=== PATIENT | male | born 1970 | race Caucasian/White ===

== ENCOUNTER 2022-11-01 18:23 | Emergency (ER) | payer MEDICAID ==
[~2022-11-01] VITALS: Ht 177 cm; Wt 109.0 kg
[2022-11-01] MEDS ORDERED: CLINDAMYCIN 600 MG/50 ML IVPB 50 ML IV ONE (18:45)
[2022-11-01 18:59] LABS: BASOPHILS % (AUTO) 1 % (0-10); EOSINOPHILS # (AUTO) 0.2 10^3/uL (0.0-0.3); EOSINOPHILS % (AUTO) 4 % (0-10); HEMATOCRIT 43 % (40-54); LYMPHOCYTES # (AUTO) 1.8 10^3/uL (1.0-4.0); LYMPHOCYTES % (AUTO) 33 % (12-44); MEAN CORPUSCULAR HEMOGLOBIN 32 pg (25-34); MEAN CORPUSCULAR HGB CONC 35 g/dL (32-36); MEAN CORPUSCULAR VOLUME 91 fL (80-99); MEAN PLATELET VOLUME 9.1 fL (9.0-12.2); MONOCYTES # (AUTO) 0.7 10^3/uL (0.0-1.0); MONOCYTES % (AUTO) 14 % (0-12); NEUTROPHILS # (AUTO) 2.6 10^3/uL (1.8-7.8); NEUTROPHILS % (AUTO) 48 % (42-75); PLATELET COUNT 225 10^3/uL (130-400); WHITE BLOOD COUNT 5.4 10^3/uL (4.3-11.0)
[2022-11-01 19:24] LABS: ALBUMIN 4.1 GM/DL (3.2-4.5); BILIRUBIN,TOTAL 0.4 MG/DL (0.1-1.0); CALCIUM 9.1 MG/DL (8.5-10.1); CREATININE SERUM 0.89 MG/DL (0.60-1.30); POTASSIUM 3.9 MMOL/L (3.6-5.0); TOTAL PROTEIN 6.7 GM/DL (6.4-8.2)
[2022-11-01] MEDS ORDERED: CLIN150C20 PO (20:13)
--- NOTE | 2022-11-01 20:14 | ED Lower Extremity ---
General Chief Complaint: Lower Extremity Stated Complaint: SENT BY PCP FOOT PAIN Nursing Triage Note: PT PRESENTS TO ED WITH COMPLAINTS OF L FOOT PAIN/SWELLING THAT HAS BEEN PROGRESSIVELY WORSE OVER THE PAST WEEK. PT BEEN SEEN BY [facility] IN [place] 4 DAYS AGO AND PRESCRIBED DOXYCYCLINE AND GIVEN A ROCEPHINE SHOT YESTERDAY. PT REPORTS INCREASED SWELLING DESPITE ANTIBIOTICS. Source: patient Exam Limitations: no limitations History of Present Illness Date Seen by Provider: Nov 01, 2022 Time Seen by Provider: 19:00 Initial Comments 52-year-old male presents for left foot pain. He was seen in primary care clinic initially and started on doxycycline. He states symptoms continue to worsen and yesterday he was given a shot of Rocephin. He was seen again today for recheck and advised to come to the emergency department. He denies any fevers or chills. He does have significant swelling to about the mid robles. All other systems reviewed and negative except documented per HPI. Voice recognition software was used to help create this chart Allergies and Home Medications Allergies Coded Allergies: No Known Drug Allergies (Unverified , 11/01/22) Patient Home Medication List Home Medication List Reviewed: Yes Clindamycin HCl (Clindamycin HCl) 150 Mg Capsule, 300 MG PO TID Prescribed by: SHAUN SAMUELS MD on 11/01/22 2013 Review of Systems Constitutional: see HPI Past Pqccnng-Ousuof-Oualyi Hx Patient Social History Tobacco Use?: Yes Tobacco type used: Cigarettes Smoking Status: Current Everyday Smoker Substance use?: Yes Substance type: Marijuana Alcohol Use?: Yes Alcohol Frequency: Once in a while Pt feels they are or have been: No Physical Exam Vital Signs Vital Signs - First Documented 11/01/22 18:37 Temp 36.6 Pulse 77 Resp 16 B/P (MAP) 153/98 (116) Pulse Ox 96 Capillary Refill : Less Than 3 Seconds Height, Weight, BMI Height: '" Weight: lbs. oz. kg; 34.00 BMI Method: General Appearance: WD/WN, no apparent distress Cardiovascular: regular rate, rhythm, no murmur Respiratory: chest non-tender, lungs clear, normal breath sounds Hips: bilateral hip non-tender, bilateral hip normal inspection, bilateral hip normal range of motion Legs: left leg swelling (Swelling, erythema the left foot and the ankle area. There is no fluctuance or induration.); bilateral leg other (Hyperemia with slight scaling/blistering to the dorsum of bilateral feet.) Feet: bilateral foot other (As described above) Neurologic/Tendon: normal sensation, normal motor functions, normal tendon functions Neurologic/Psychiatric: alert, oriented x 3 Skin: other (As described elsewhere) Progress/Results/Core Measures Results/Orders Lab Results Laboratory Tests Test 11/01/22 18:52 Range/Units White Blood Count 5.4 4.3-11.0 10^3/uL Red Blood Count 4.73 4.30-5.52 10^6/uL Hemoglobin 15.0 13.3-17.7 g/dL Hematocrit 43 40-54 % Mean Corpuscular Volume 91 80-99 fL Mean Corpuscular Hemoglobin 32 25-34 pg Mean Corpuscular Hemoglobin Concent 35 32-36 g/dL Red Cell Distribution Width 12.4 10.0-14.5 % Platelet Count 225 130-400 10^3/uL Mean Platelet Volume 9.1 9.0-12.2 fL Immature Granulocyte % (Auto) 0 % Neutrophils (%) (Auto) 48 42-75 % Lymphocytes (%) (Auto) 33 12-44 % Monocytes (%) (Auto) 14 H 0-12 % Eosinophils (%) (Auto) 4 0-10 % Basophils (%) (Auto) 1 0-10 % Neutrophils # (Auto) 2.6 1.8-7.8 10^3/uL Lymphocytes # (Auto) 1.8 1.0-4.0 10^3/uL Monocytes # (Auto) 0.7 0.0-1.0 10^3/uL Eosinophils # (Auto) 0.2 0.0-0.3 10^3/uL Basophils # (Auto) 0.0 0.0-0.1 10^3/uL Immature Granulocyte # (Auto) 0.0 0.0-0.1 10^3/uL D-Dimer 0.39 0.00-0.49 UG/ML Sodium Level 140 135-145 MMOL/L Potassium Level 3.9 3.6-5.0 MMOL/L Chloride Level 108 H 98-107 MMOL/L Carbon Dioxide Level 22 21-32 MMOL/L Anion Gap 10 5-14 MMOL/L Blood Urea Nitrogen 23 H 7-18 MG/DL Creatinine 0.89 0.60-1.30 MG/DL Estimat Glomerular Filtration Rate 104 BUN/Creatinine Ratio 26 Glucose Level 139 H 70-105 MG/DL Calcium Level 9.1 8.5-10.1 MG/DL Corrected Calcium 9.0 8.5-10.1 MG/DL Total Bilirubin 0.4 0.1-1.0 MG/DL Aspartate Amino Transf (AST/SGOT) 17 5-34 U/L Alanine Aminotransferase (ALT/SGPT) 24 0-55 U/L Alkaline Phosphatase 51 40-136 U/L Total Protein 6.7 6.4-8.2 GM/DL Albumin 4.1 3.2-4.5 GM/DL My Orders Orders - SHAUN SAMUELS DO Comprehensive Metabolic Panel (11/01/22 18:38) Ed Iv/Invasive Line Start (11/01/22 18:38) Cbc With Automated Diff (11/01/22 18:38) Clindamycin 600 Mg/50 Ml Ivpb (Clindamyc (11/01/22 18:45) Fibrin Degradation Products (11/01/22 18:47) Medications Given in ED Current Medications Medications Dose Ordered Sig/Laine Route Start Time Stop Time Status Last Admin Dose Admin Clindamycin Phosphate/Dextrose 50 ml @ 100 mls/hr ONCE ONCE IV 11/01/22 18:45 11/01/22 19:14 DC 11/01/22 19:00 100 MLS/HR Vital Signs/I&O 11/01/22 11/01/22 18:37 20:27 Temp 36.6 Pulse 77 77 Resp 16 16 B/P (MAP) 153/98 (116) 130/86 Pulse Ox 96 96 Blood Pressure Mean: 116 Departure Communication (Admissions) Patient is hemodynamically stable. He has clear cellulitis no evidence of abscess. D-dimer is negative, likely not DVT. Also counts normal as are his vital signs. We will switch him from doxycycline to clindamycin. He is given his first dose here in an IV. Discharged in stable condition with strict return precautions that if his symptoms are worsening after 24 hours he needs to be admitted for IV antibiotics Impression Primary Impression: Cellulitis Qualified Codes: L03.116 - Cellulitis of left lower limb Disposition: HOME, SELF-CARE Condition: Stable Departure-Patient Inst. Referrals: TRUE NICHOLAS MD (PCP/Family) Primary Care Physician Add. Discharge Instructions: Doxycycline to start taking clindamycin. The redness may get a little worse over the next 24 hours but should not get worse after that. If it still worsening after 24 hours you need to be admitted to the hospital for IV antibiotics return to the emergency department sooner for any severe concerns. Follow-up with your primary doctor in the next 48 hours for recheck of your leg All discharge instructions reviewed with patient and/or family. Voiced understanding. Scripts Clindamycin HCl (Clindamycin HCl) 150 Mg Capsule 300 MG PO TID for 7 Days, #42 CAP Prov: SHAUN SAMUELS DO 11/01/22 SHAUN SAMUELS DO Nov 01, 2022 20:14
[2022-11-01 20:27] VITALS: BP 130/86
== END 2022-11-01 20:27 | disposition home or self-care (01) ==
LOC: EDUNIT# 18:23 → ER 18:29
DX: L03.116 Cellulitis of left lower limb (principal); F17.210 Nicotine dependence, cigarettes, uncomplicated
CPT/HCPCS: 36415; 80053; 85025; 85379

== ENCOUNTER 2022-11-08 11:32 | Emergency (ER) | payer MEDICAID ==
[~2022-11-08] VITALS: Ht 177.8 cm; Wt 108.8 kg
[~2022-11-08 11:32] MED LIST: CLIN150C20 PO
[2022-11-08] MEDS ORDERED: PIPERACILLIN/Tazobactam 4.5 GM in NS (IVPB) 100 ML 100 ML IV ONE (12:15)
[2022-11-08] MEDS ORDERED: VANCOMYCIN INJECTION 1,000 MG in NS (IVPB) 250 ML 250 ML IV ONE (12:15)
[2022-11-08 12:22] LABS: BASOPHILS % (AUTO) 0 % (0-10); EOSINOPHILS # (AUTO) 0.1 10^3/uL (0.0-0.3); EOSINOPHILS % (AUTO) 1 % (0-10); HEMATOCRIT 47 % (40-54); HEMOGLOBIN 16.2 g/dL (13.3-17.7); LYMPHOCYTES # (AUTO) 1.8 10^3/uL (1.0-4.0); LYMPHOCYTES % (AUTO) 15 % (12-44); MEAN CORPUSCULAR HEMOGLOBIN 31 pg (25-34); MEAN CORPUSCULAR HGB CONC 35 g/dL (32-36); MEAN CORPUSCULAR VOLUME 90 fL (80-99); MEAN PLATELET VOLUME 8.8 fL (9.0-12.2); MONOCYTES % (AUTO) 9 % (0-12); NEUTROPHILS # (AUTO) 8.7 10^3/uL (1.8-7.8); NEUTROPHILS % (AUTO) 75 % (42-75); PLATELET COUNT 252 10^3/uL (130-400); WHITE BLOOD COUNT 11.7 10^3/uL (4.3-11.0)
[2022-11-08 12:25] LABS: ALBUMIN 4.4 GM/DL (3.2-4.5); POTASSIUM 4.3 MMOL/L (3.6-5.0)
--- NOTE | 2022-11-08 12:25 | ED General ---
General Chief Complaint: General Problems/Pain Stated Complaint: ABD PAIN | COVID+ 5 DAYS AGO Nursing Triage Note: PT AMB TO RM 5 SENT FROM [facility] WITH CC OF "LUMP IN R GROIN" X 3 DAYS. PT REPORTS PAIN WITH PALPATATION OF AREA OF CONCERN. REDDNESS AND SWELLING NOTED TO AREA. PT REPORTS TESTED POS FOR COVID 5 DAY AGO. PT STATES RECENT MRSA INFECTION ON FOOT TREATED WTIH IV ANTIBIOTICS. Source of Information: Patient Exam Limitations: No Limitations History of Present Illness Date Seen by Provider: Nov 08, 2022 Time Seen by Provider: 12:24 Initial Comments Patient is a 52-year-old male who presents the ED from [facility] for a lump in right groin. Started 3 days ago. Started with a small red bump. This has increased and become more longitudinal. He reports some mild pain and discomfort. Denies of any specific injury. States he is currently on clindamycin and Bactrim. Has not taken antibiotic today. History of MRSA to his left foot. Denies of any current fever, chills body aches. He does report being diagnosed with COVID 5 days ago and currently on Paxlovid. He states he is feeling much better since being diagnosed with COVID. He is concern for potential abscess versus early infection to his right groin. Denies of any pain with urination, frequent urination, headache, dizziness, nausea vomit, diarrhea Allergies and Home Medications Allergies Coded Allergies: No Known Drug Allergies (Unverified , 11/01/22) Patient Home Medication List Home Medication List Reviewed: Yes Clindamycin HCl (Clindamycin HCl) 150 Mg Capsule, 300 MG PO TID Prescribed by: SHAUN SAMUELS MD on 11/01/222012 Review of Systems Review of Systems Constitutional: No chills, No diaphoresis; malaise, weakness EENTM: No blurred vision, No double vision Respiratory: No cough Cardiovascular: No chest pain Gastrointestinal: No abdominal pain, No diarrhea, No nausea, No vomiting Genitourinary: No decreased output Musculoskeletal: No back pain, No gout Skin: change in color All Other Systems Reviewed Negative Unless Noted: Yes Past Zksphnj-Tcqzur-Rkotib Hx Patient Social History Tobacco Use?: Yes Tobacco type used: Cigarettes Smoking Status: Current Everyday Smoker Substance use?: Yes Substance type: Marijuana Substance frequency: Daily Alcohol Use?: Yes Alcohol Frequency: Once in a while Past Medical History Surgery/Hospitalization HX: DENIES Physical Exam Vital Signs Vital Signs - First Documented 11/08/22 11:59 Temp 37.1 Pulse 86 Resp 16 B/P (MAP) 143/100 (114) Pulse Ox 98 O2 Delivery Room Air Capillary Refill : Less Than 3 Seconds Height, Weight, BMI Height: '" Weight: lbs. oz. kg; 34.00 BMI Method: General Appearance: No Apparent Distress, WD/WN Eyes: Bilateral Eye Normal Inspection, Bilateral Eye PERRL, Bilateral Eye EOMI HEENT: PERRL/EOMI, TMs Normal, Normal ENT Inspection, Pharynx Normal Neck: Full Range of Motion, Normal Inspection, Non Tender, Supple Respiratory: Chest Non Tender, Lungs Clear, Normal Breath Sounds, No Accessory Muscle Use, No Respiratory Distress Cardiovascular: Regular Rate, Rhythm, No Edema, No Gallop, No JVD Gastrointestinal: Normal Bowel Sounds, No Organomegaly, No Pulsatile Mass, Non Tender Back: Normal Inspection, No CVA Tenderness, No Vertebral Tenderness Extremity: Other (Induration swelling to right groin. No fluctuant mass. Palpable inguinal lymphadenopathy. Mild tenderness to palpate.) Neurologic/Psychiatric: Alert, Oriented x3, No Motor/Sensory Deficits, Normal Mood/Affect, sql programmer analyst II-XII Norm as Tested Skin: Other (Erythema and swelling to right groin. Induration noted. No fluctuant mass.) Progress/Results/Core Measures Suspected Sepsis SIRS Temperature: Pulse: 86 Respiratory Rate: 16 Laboratory Tests 11/08/22 12:07: White Blood Count 11.7H Blood Pressure 143 /100 Mean: 114 Laboratory Tests 11/08/22 12:07: Creatinine 0.87, Platelet Count 252, Total Bilirubin 0.9 Results/Orders Lab Results Laboratory Tests Test 11/08/22 12:07 Range/Units White Blood Count 11.7 H 4.3-11.0 10^3/uL Red Blood Count 5.16 4.30-5.52 10^6/uL Hemoglobin 16.2 13.3-17.7 g/dL Hematocrit 47 40-54 % Mean Corpuscular Volume 90 80-99 fL Mean Corpuscular Hemoglobin 31 25-34 pg Mean Corpuscular Hemoglobin Concent 35 32-36 g/dL Red Cell Distribution Width 12.4 10.0-14.5 % Platelet Count 252 130-400 10^3/uL Mean Platelet Volume 8.8 L 9.0-12.2 fL Immature Granulocyte % (Auto) 0 % Neutrophils (%) (Auto) 75 42-75 % Lymphocytes (%) (Auto) 15 12-44 % Monocytes (%) (Auto) 9 0-12 % Eosinophils (%) (Auto) 1 0-10 % Basophils (%) (Auto) 0 0-10 % Neutrophils # (Auto) 8.7 H 1.8-7.8 10^3/uL Lymphocytes # (Auto) 1.8 1.0-4.0 10^3/uL Monocytes # (Auto) 1.0 0.0-1.0 10^3/uL Eosinophils # (Auto) 0.1 0.0-0.3 10^3/uL Basophils # (Auto) 0.0 0.0-0.1 10^3/uL Immature Granulocyte # (Auto) 0.0 0.0-0.1 10^3/uL Sodium Level 136 135-145 MMOL/L Potassium Level 4.3 3.6-5.0 MMOL/L Chloride Level 104 98-107 MMOL/L Carbon Dioxide Level 24 21-32 MMOL/L Anion Gap 8 5-14 MMOL/L Blood Urea Nitrogen 15 7-18 MG/DL Creatinine 0.87 0.60-1.30 MG/DL Estimat Glomerular Filtration Rate 104 BUN/Creatinine Ratio 17 Glucose Level 106 H 70-105 MG/DL Calcium Level 9.3 8.5-10.1 MG/DL Corrected Calcium 9.0 8.5-10.1 MG/DL Total Bilirubin 0.9 0.1-1.0 MG/DL Aspartate Amino Transf (AST/SGOT) 18 5-34 U/L Alanine Aminotransferase (ALT/SGPT) 24 0-55 U/L Alkaline Phosphatase 61 40-136 U/L C-Reactive Protein High Sensitivity 2.25 H 0.00-0.50 MG/DL Total Protein 7.3 6.4-8.2 GM/DL Albumin 4.4 3.2-4.5 GM/DL My Orders Orders - MICK HER Cbc With Automated Diff (11/08/22 12:15) Comprehensive Metabolic Panel (11/08/22 12:15) Hs C Reactive Protein (11/08/22 12:15) Us Right Low Ext Nonvasc [id number] (11/08/22 12:15) Vancomycin Injection (Vancomycin Injecti (11/08/22 12:15) Piperacillin/Tazobactam (Piperacillin/Ta (11/08/22 12:15) Medications Given in ED Current Medications Medications Dose Ordered Sig/Laine Route Start Time Stop Time Status Last Admin Dose Admin Piperacillin Sod/ Tazobactam Sod 4.5 gm/Sodium Chloride 100 ml @ 200 mls/hr ONCE ONCE IV 11/08/22 12:15 11/08/22 12:44 DC 11/08/22 12:27 200 MLS/HR Vancomycin HCl 1000 mg/Sodium Chloride 250 ml @ 250 mls/hr ONCE ONCE IV 11/08/22 12:15 11/08/22 13:14 DC 11/08/22 13:21 250 MLS/HR Vital Signs/I&O 11/08/22 11:59 Temp 37.1 Pulse 86 Resp 16 B/P (MAP) 143/100 (114) Pulse Ox 98 O2 Delivery Room Air Capillary Refill : Less Than 3 Seconds Blood Pressure Mean: 114 Departure Communication (PCP) Differential diagnosis cellulitis, abscess, sepsis. Patient presents to ED for swelling and redness to his right groin over the past 3 days. No specific injury. History of MRSA to his left foot last month. Currently on clindamycin. Patient Was started on Bactrim yesterday but has not taken at this time. Diagnosed with COVID 5 days ago currently on Paxlovid. Patient states his fluli ke symptoms are improving. On exam of the right groin swelling and induration longitudinal in the right groin. No testicle or swelling or tenderness. No area of inoculation. Concern for early cellulitis. Difficult to determine if there is an underlying fluctuant mass. Did order an ultrasound which did not note any fluid collection. He is afebrile and not tachycardic. Patient denies feeling feverish, denies chills weakness or fatigue. CBC slight elevated white blood count 11.7. Slight elevated CRP. Did receive Zosyn and vancomycin. At this time I do think oral antibiotics is reasonable. Provided general surgery outpatient follow-up for further evaluation. This may require incision and drainage if continued increase in size. I do not think patient necessarily needs IV antibiotics at this time. Appears to be fairly localized. If any increasing redness or swelling or pain to return back to ED. Impression Primary Impression: Cellulitis Disposition: 01 HOME, SELF-CARE Condition: Stable Departure-Patient Inst. Decision time for Depature: 13:17 Referrals: MADELINE MCFADDEN BENJAMEN H MD (PCP/Family) Primary Care Physician Patient Instructions: Cellulitis (Skin Infection), Adult (DC) Add. Discharge Instructions: If increased redness or swelling or pain recommend returning back to ED. Take clindamycin and Bactrim. Continue monitoring. Provided general surgery outpatient follow-up as this may eventually require incision and drainage. There is no fluctuant mass at this time. Continue taking your antibiotics All discharge instructions reviewed with patient and/or family. Voiced understanding. MICK HER Nov 08, 2022 12:25
[2022-11-08 12:26] LABS: CALCIUM 9.3 MG/DL (8.5-10.1)
[2022-11-08 12:28] LABS: TOTAL PROTEIN 7.3 GM/DL (6.4-8.2)
[2022-11-08 12:29] LABS: BILIRUBIN,TOTAL 0.9 MG/DL (0.1-1.0)
[2022-11-08 12:31] LABS: CREATININE SERUM 0.87 MG/DL (0.60-1.30)
--- NOTE | 2022-11-08 12:59 | Diagnostic Imaging Report ---
TECHNIQUE: Focused ultrasound of the right groin is performed. COMPARISON: None. REASON FOR EXAM: Right groin pain and swelling. FINDINGS: No sonographic abnormalities are seen in the right groin. No mass or fluid collection. IMPRESSION: No sonographic abnormalities in the right groin. Dictated by: Dictated on workstation # [id number]
[2022-11-08 14:29] VITALS: BP 133/100
== END 2022-11-08 14:29 | disposition home or self-care (01) ==
LOC: EDUNIT# 11:32 → ER 11:35
DX: U07.1 COVID-19 (principal); L03.314 Cellulitis of groin; F17.210 Nicotine dependence, cigarettes, uncomplicated
CPT/HCPCS: 36415; 76881; 80053; 85025; 86141